=== PATIENT | female | born 1990 | race Caucasian/White ===

== ENCOUNTER → 2018-07-19 | Outpatient (CLI) | payer OTHER | END | disposition home or self-care (01) | LOC: CFH 13:39 | PROVIDERS: ATTEND Nurse Practitioner Family | DX: R60.0 Localized edema (principal) ==

== ENCOUNTER 2018-12-10 21:55 | Emergency (ER) | payer OTHER ==
[~2018-12-10] VITALS: Ht 172.7 cm; Wt 90.0 kg
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
--- NOTE | 2018-12-10 22:08 | NUR ---
REMOVED ALL BELONGINGS FROM PT AN PLACED IN LOCKER
[2018-12-10] MEDS ORDERED: DIPH,PERTUSS(ACELL),TET VAC/PF 0.5 ML IM-VACC ONE ×2 (22:30→22:42)
[2018-12-10] MEDS ORDERED: LIDOCAINE 2%, 20ML INFIL ONE (22:30)
[2018-12-10] MEDS ORDERED: LIDOCAINE-MPF 1%, 5ML ONE ×4 (22:42→23:31)
[2018-12-10 22:43] LABS: AMPHETAMINE SCREEN, URINE Negative (Negative); BARBITURATE SCREEN, URINE Negative (Negative); BENZODIAZEPINE SCREEN, URINE Negative (Negative); CANNABINOID SCREEN, URINE Negative (Negative); COCAINE SCREEN, URINE Negative (Negative); METHADONE SCREEN, URINE Negative (Negative); OPIATE SCREEN, URINE Negative (Negative)
[2018-12-10 23:00] LABS: BASOPHILS # (AUTO) 0.04 x10^3/uL (0-0.1); BASOPHILS % (AUTO) 1 % (0-1); EOSINOPHILS # (AUTO) 0.09 x10^3/uL (0-0.4); EOSINOPHILS % (AUTO) 1 % (1-7); LYMPHOCYTES % (AUTO) 36 % (22-44); MD NO; MEAN CORPUSCULAR HEMOGLOBIN 31.8 pg (27.0-34.8); MEAN CORPUSCULAR VOLUME 93.6 fL (80-100); MEAN PLATELET VOLUME 7.3 fL (7.4-10.4); MONOCYTES # (AUTO) 0.57 x10^3/uL (0.2-0.8); MONOCYTES % (AUTO) 7 % (2-9); NEUTROPHILS # (AUTO) 4.43 x10^3/uL (1.8-6.8); NEUTROPHILS % (AUTO) 55 % (42-75); PLATELET COUNT 350 x10^3/uL (130-400); RED BLOOD COUNT 3.92 x10^6/uL (3.82-5.3); RED CELL DISTRIBUTION WIDTH 12.5 % (9.6-15.2)
[2018-12-10 23:13] LABS: ANION GAP 5 mmol/L (5-15); CALCIUM 7.9 mg/dL (8.5-10.1); CHLORIDE 112 mmol/L (98-107)
[2018-12-10 23:19] LABS: ALANINE AMINOTRANSFERASE 17 U/L (12-78); ALKALINE PHOSPHATASE 50 U/L (45-117); BILIRUBIN,TOTAL 0.3 mg/dL (0.2-1.0); TOTAL PROTEIN 6.7 g/dL (6.4-8.2)
[2018-12-10 23:28] LABS: ACETAMINOPHEN < 2 mcg/mL (10-30); SALICYLATE LEVEL < 1.7 mg/dL (2.8-20.0)
--- NOTE | 2018-12-10 23:47 | NUR ---
PA AT BS SUTURING PTS ARM
--- NOTE | 2018-12-10 23:51 | NUR ---
TELEPSYCH INITIATED, [id number] BOT PLACED AT BS.
--- NOTE | 2018-12-11 02:04 | NUR ---
PT RESTING ON GURNEY WITH EYES CLOSED, NADN, ROOM SECURED, EQUAL CHEST RISE/FALL OBSERVED, SITTER AT DOORWAY FOR CONTINOUS MONITORING
[2018-12-11] MEDS ORDERED: BACITRACIN ZINC OINT 500U/GM, 0.9 GM ONE (02:09)
--- NOTE | 2018-12-11 02:14 | NUR ---
LEFT FOREARM WOUND CLEANED, BACITRACIN AND DRESSING APPLIED
[2018-12-11] MEDS ORDERED: ACETAMINOPHEN 325 MG TABLET ONE (02:18)
--- NOTE | 2018-12-11 02:43 | NUR ---
SOC ON TELEPHONE, UPDATED PN PT STATUS, H/X, VS AND LABS, SOC TO CONSULT WITH PT
--- NOTE | 2018-12-11 02:59 | NUR ---
TELEPSYCH CONSULT IN PROCESS
--- NOTE | 2018-12-11 03:07 | NUR ---
PT RESTING ON GURNEY, DENIES NEEDS AT THIS TIME, RESPIRATIONS EVEN AND UNLABORED, SITTER AT DOORWAY FOR CONTINOUS MONITORING.
--- NOTE | 2018-12-11 04:07 | NUR ---
PT RESTING ON GURNEY WITH EYES CLOSED, NADN, EQUAL CHEST RISE/FALL OBSERVED, SITTER AT DOORWAY FOR CONTINOUS MONITORING
[2018-12-11 04:38] VITALS: BP 119/80
== END 2018-12-11 04:46 | disposition home or self-care (01) ==
LOC: ED 22:55
DX: S51.812A Laceration without foreign body of left forearm, initial encounter (principal); F32.9 Major depressive disorder, single episode, unspecified; X78.8XXA Intentional self-harm by other sharp object, initial encounter; Y93.89 Activity, other specified; Y92.89 Other specified places as the place of occurrence of the external cause; Y99.8 Other external cause status
CPT/HCPCS: 12006; 36415; 80053; 80307; 80329; 84703; 85025; 90471; 90715; 99284; G0480

== ENCOUNTER 2018-12-16 10:48 | Emergency (ER) | payer OTHER ==
[~2018-12-16] VITALS: Ht 152.4 cm; Wt 86.0 kg
[2018-12-16 10:59] VITALS: BP 117/79
--- NOTE | 2018-12-16 11:21 | NUR ---
Patient/Caregiver given discharge instructions and they have confirmed that they understand the instructions. Patient ambulatory with steady gait. PT LEFT WITH ALL PERSONAL BELONGINGS.
== END 2018-12-16 11:37 | disposition home or self-care (01) ==
LOC: ED 11:26
DX: S51.812D Laceration without foreign body of left forearm, subsequent encounter (principal); X58.XXXD Exposure to other specified factors, subsequent encounter
CPT/HCPCS: 99282

== ENCOUNTER → 2019-09-22 | Outpatient (CLI) | payer OTHER | END | disposition home or self-care (01) | LOC: CFH 09:18 | PROVIDERS: ATTEND Nurse Practitioner | DX: N64.4 Mastodynia (principal); R07.1 Chest pain on breathing; N63.20 Unspecified lump in the left breast, unspecified quadrant; Z80.3 Family history of malignant neoplasm of breast | CPT/HCPCS: 76642 ==

== ENCOUNTER 2021-02-18 09:09 | Emergency (ER) | payer SELFPAY ==
[~2021-02-18] VITALS: Ht 154.9 cm; Wt 91.0 kg
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
--- NOTE | 2021-02-18 09:27 | NUR ---
ERMD AT BEDSIDE FOR EVALUATION.
[2021-02-18] MEDS ORDERED: ALBUTEROL/IPRATROPIUM 2.5MG/0.5MG, 3 ML NPPB ONE (09:30)
[2021-02-18] MEDS ORDERED: ALBUTEROL/IPRATROPIUM 2.5MG/0.5MG, 3 ML ONE (09:44)
--- NOTE | 2021-02-18 09:50 | NUR ---
BREATHING TREATMENT ADMINISTERED
--- NOTE | 2021-02-18 10:22 | NUR ---
REPORT TO TORY CASTELLANOS.
--- NOTE | 2021-02-18 10:30 | NUR ---
REPORT RECEIVED FROM EMANUEL MERCADO.
[2021-02-18 10:48] VITALS: BP 107/67
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
[2021-02-18] MEDS ORDERED: IBUPROFEN 200 MG TABLET PO ONE (11:30)
[2021-02-18] MEDS ORDERED: ACETAMINOPHEN 325 MG TABLET PO ONE (11:30)
--- NOTE | 2021-02-18 11:32 | NUR ---
Discharge instructions reviewed
== END 2021-02-18 11:34 | disposition home or self-care (01) ==
LOC: ED 11:30
DX: J98.01 Acute bronchospasm (principal); B34.9 Viral infection, unspecified; Z20.822 Contact with and (suspected) exposure to COVID-19
CPT/HCPCS: 71045; 94640; 99284; U0003